=== PATIENT | male | born 1970 | race Hispanic/Latino ===

== ENCOUNTER 2022-06-29 08:06 | Outpatient (CLI) | payer SELFPAY | END 2022-06-29 08:07 | disposition home or self-care (01) | LOC: CSHWCC 08:06 | PROVIDERS: ATTEND Preventive Medicine Undersea and Hyperbaric Medicine | DX: E11.622 Type 2 diabetes mellitus with other skin ulcer (principal); L97.924 Non-pressure chronic ulcer of unspecified part of left lower leg with necrosis of bone | CPT/HCPCS: 97605 ==

== ENCOUNTER 2022-07-03 08:04 | Outpatient (CLI) | payer SELFPAY | END 2022-07-03 08:05 | disposition home or self-care (01) | LOC: CSHWCC 08:04 | PROVIDERS: ATTEND Preventive Medicine Undersea and Hyperbaric Medicine | DX: E11.622 Type 2 diabetes mellitus with other skin ulcer (principal); L97.924 Non-pressure chronic ulcer of unspecified part of left lower leg with necrosis of bone | CPT/HCPCS: 97605 ==

== ENCOUNTER 2022-07-06 10:54 | Outpatient (CLI) | payer SELFPAY | END 2022-07-06 10:55 | disposition home or self-care (01) | LOC: CSHWCC 10:54 | PROVIDERS: ATTEND Preventive Medicine Undersea and Hyperbaric Medicine | DX: E11.622 Type 2 diabetes mellitus with other skin ulcer (principal); L97.924 Non-pressure chronic ulcer of unspecified part of left lower leg with necrosis of bone | CPT/HCPCS: 97605 ==

== ENCOUNTER 2022-07-10 10:10 | Outpatient (CLI) | payer SELFPAY | END 2022-07-10 10:11 | disposition home or self-care (01) | LOC: CSHWCC 10:10 | PROVIDERS: ATTEND Preventive Medicine Undersea and Hyperbaric Medicine | DX: E11.622 Type 2 diabetes mellitus with other skin ulcer (principal); L97.924 Non-pressure chronic ulcer of unspecified part of left lower leg with necrosis of bone; Z89.412 Acquired absence of left great toe | CPT/HCPCS: 97605 ==

== ENCOUNTER 2022-07-13 11:25 | Outpatient (CLI) | payer SELFPAY | END 2022-07-13 11:26 | disposition home or self-care (01) | LOC: CSHWCC 11:25 | PROVIDERS: ATTEND Nurse Practitioner Family | DX: E11.622 Type 2 diabetes mellitus with other skin ulcer (principal); L97.924 Non-pressure chronic ulcer of unspecified part of left lower leg with necrosis of bone | CPT/HCPCS: 97605 ==

== ENCOUNTER 2022-07-20 08:44 | Outpatient (CLI) | payer SELFPAY | END 2022-07-20 08:45 | disposition home or self-care (01) | LOC: CSHWCC 08:44 | PROVIDERS: ATTEND Nurse Practitioner Family | DX: E11.622 Type 2 diabetes mellitus with other skin ulcer (principal); L97.924 Non-pressure chronic ulcer of unspecified part of left lower leg with necrosis of bone | CPT/HCPCS: 99213; G0463 ==